=== PATIENT | female | born 1990 | race African-American/Black ===

== ENCOUNTER 2023-09-05 16:18 | Observation (INO) | payer OTHER, SELFPAY ==
[2023-09-05 16:47] VITALS: BP 117/54; BMI 43.0
== END 2023-09-05 16:57 ==
LOC: LDRP 16:18
PROVIDERS: ADMITTING PHYSICIAN Obstetrics & Gynecology
DX: O47.1 False labor at or after 37 completed weeks of gestation (principal); Z3A.39 39 weeks gestation of pregnancy
CPT/HCPCS: 59025; G0378